=== PATIENT | male | born 1990 | race Two or more races ===

== ENCOUNTER 2025-02-21 18:28 | Inpatient (IN) | payer OTHER ==
[~2025-02-21] VITALS: Ht 190.5 cm; Wt 136.8 kg
--- NOTE | 2025-02-21 18:43 | ED.PDOC ---
History of Present Illness HPI Comments 34-year-old male with no significant past medical history brought in by private car complaining of lower back pain since 10:00 a.m. today. Patient states he was at work lifting a 50 lb steel plate. He states his arms were extended, he was leaning forward, then felt a sharp pain in his lower back as he was extending his back to lift the plate. He states the pain is severe, worse with movement, greater on the left than the right side. He denies any other injuries. He denies any numbness, weakness, bowel or bladder symptoms. Time Seen by MD: 18:35 Reviewed Notes: Nurses Notes, Medications, Allergies Allergies: Coded Allergies: NO KNOWN ALLERGIES (Unverified , 09/03/16) Information Source: Patient Mode of Arrival: Ambulatory Severity: Moderate Timing: Hours Duration: Since onset, Hours Prehospital treatment: None Past Medical History PAST MEDICAL HISTORY: Denies Surgical History: Denies all surgeries Family History Family History: Reviewed,noncontributory to illness, Unknown Social History Smoker: Unknown Alcohol: Denies ETOH Use Drugs: Denies Drug Use Lives In: Home Constitutional: denies: chills, diaphoresis, fatigue, fever, malaise, sweats, weakness, others EENTM: denies: blurred vision, double vision, ear bleeding, ear discharge, ear drainage, ear pain, ear ringing, eye pain, eye redness, hearing loss, mouth pain, mouth swelling, nasal discharge, nose bleeding, nose congestion, nose pain, photophobia, tearing, throat pain, throat swelling, voice changes, others Respiratory: denies: cough, hemoptysis, orthopnea, SOB at rest, shortness of breath, SOB with excertion, stridor, wheezing, others Cardiovascular: denies: chest pain, dizzy spells, diaphoresis, Dyspnea on exertion, edema, irregular heart beat, left arm pain, lightheadedness, palpitations, PND, syncope, others Gastrointestinal: denies: abdomen distended, abdominal pain, blood streaked bowels, constipated, diarrhea, dysphagia, difficulty swallowing, hematemesis, melena, nausea, poor appetite, poor fluid intake, rectal bleeding, rectal pain, vomiting, others Genitourinary: denies: burning, dysuria, flank pain, frequency, hematuria, incontinence, penile discharge, penile sore, pain, testicle pain, testicle swelling, urgency, others Neurological: denies: dizziness, fainting, headache, left sided numbness, left sided weakness, numbness, paresthesia, pre-existing deficit, right sided numbness, right sided weakness, seizure, speech problems, tingling, tremors, weakness, others Musculoskeletal: reports: back pain; denies: gout, joint pain, joint swelling, muscle pain, muscle stiffness, neck pain, others Integumetry: denies: bruises, change in color, change in hair/nails, dryness, laceration, lesions, lumps, rash, wounds, others Allergic/Immunocompromised: denies: Difficulty Healing, Frequent Infections, Hives, Itching, others Hematologic/Lymphatic: denies: anemia, blood clots, easy bleeding, easy bruising, swollen glands, others Endocrine: denies: excessive hunger, excessive sweating, excessive thirst, excessive urination, flushing, intolerance to cold, intolerance to heat, unexplained weight gain, unexplained weight loss, others Psychiatric: denies: anxiety, bipolar disorder, depression, hopeless, panic disorder, schizophrenia, sleepless, suicidal, others All Other Systems: Reviewed and Negative Physical Exam General Appearance: Mild Distress HEENT: Other (Pupils and face symmetric) Neck: Full Range of Motion, Normal Inspection Respiratory: Lungs Clear, No Accessory Muscle Use, No Respiratory Distress, Normal Breath Sounds Cardiovascular: No Edema, No JVD, Regular Rate/Rhythm Breast Exam: Deferred Gastrointestinal: Non Tender, Soft Genitalia: Deferred Pelvic: Deferred Rectal: Deferred Extremities: Normal inspection, Normal range of motion, Non-tender, No pedal edema Musculoskeletal : Extremity Location: Back (Left greater than right lumbar paraspinal soft tissue tenderness/muscle spasm. No midline tenderness.) Apperance: Normal Neurologic: Alert (Oriented x4), Other (Ambulatory) Cerebellar Function: NOT DONE Reflexes: NOT DONE Skin: Dry, Normal Color, Warm Lymphatic: NOT DONE Was a procedure done? Was a procedure done?: No Differential Dx Considerations may include: Lumbar strain/spasm, disc disease, among others X-Ray, Labs, Meds, VS Vital Signs Date Time Temp Pulse Resp B/P (MAP) Pulse Ox O2 Delivery O2 Flow Rate FiO2 02/21/25 19:10 96 17 95 Room Air 02/21/25 19:10 98.7 96 17 138/67 (90) 95 98.7 02/21/25 18:56 99.7 87 8 141/86 (104) 95 99.7 Lab Test 02/21/25 19:10 Range/Units Sodium Level 138 136-145 mmol/L Potassium Level 4.0 3.5-5.1 mmol/L Chloride Level 106 98-107 mmol/L Carbon Dioxide Level 22 20-31 mmol/L Anion Gap 10 5-15 Blood Urea Nitrogen 15 9-23 mg/dL Creatinine 0.88 0.700-1.30 mg/dL Glomerular Filtration Rate Calc 117 >90 mL/min BUN/Creatinine Ratio 17.0 10.0-20.0 Serum Glucose 100 74-106 mg/dL Calcium Level 10.4 8.7-10.4 mg/dL Total Bilirubin 0.8 0.2-1.0 mg/dL Aspartate Amino Transferase (AST) 44 H 13-40 U/L Alanine Aminotransferase (ALT) 81 H 7-40 U/L Alkaline Phosphatase 135 H 46-116 U/L Total Protein 7.9 5.7-8.2 g/dL Albumin 4.9 H 3.2-4.8 g/dL Current Medications Medications (Trade) Dose Ordered Sig/Terry Route Start Time Stop Time Status Last Admin Ketorolac Tromethamine (Toradol Injection) 30 mg ONCE ONCE IV 02/21/25 18:45 02/21/25 18:46 DC 02/21/25 19:41 Methocarbamol (Robaxin) 1,000 mg ONCE ONCE PO 02/21/25 18:45 02/21/25 18:46 DC 02/21/25 19:06 Acetaminophen/ Hydrocodone Bitart ([place] 5/325MG Tab) 2 tab ONCE ONCE PO 02/21/25 18:45 02/21/25 18:46 DC 02/21/25 19:07 Dexamethasone Sodium Phosphate (Decadron Injection) 10 mg ONCE ONCE IV 02/21/25 19:00 02/21/25 19:34 DC 02/21/25 19:40 Famotidine (Pepcid Injection) 20 mg ONCE ONCE IV 02/21/25 19:00 02/21/25 19:34 DC 02/21/25 19:40 PROCEDURE(s): LS2CT - LS SPINE WO CONTRAST REASON: low back pain s/p heavy lifting ORDER NUMBER(s): [id number], ACCESSION NUMBER(s): [id number] EXAM: CT LS SPINE WO CONTRAST INDICATION: low back pain s/p heavy lifting COMPARISON: None TECHNIQUE: Multiple axial CT images of the lumbar spine were obtained using bone algorithm. Axial and coronal reformatting was done. Bone and soft tissue windows were reviewed. Radiation Dose Information: CT Dose: CTDI volume is 38.94 mGy. Dose-length product is 1469.19 mGy*cm FINDINGS: No CT evidence of acute fracture or traumatic mal-alignment. The visualized paraspinal soft tissues are grossly unremarkable. Slightly prominent disc osteophyte complex at L5-S1 causing moderate central canal stenosis without significant neural foraminal narrowing. Small disc osteophyte complex at L4-L5 causing mild central canal stenosis without significant neural foraminal narrowing.. IMPRESSION: 1. No CT evidence of acute fracture or traumatic mal-alignment of the bony lumbar spine. 2. Slightly prominent disc osteophyte complex at L5-S1 causing moderate central canal stenosis without significant neural foraminal narrowing. 3. Small disc osteophyte complex at L4-L5 causing mild central canal stenosis without significant neural foraminal narrowing. 4. Consider lumbar spine MRI for further evaluation. 5. Radiation optimization: All CT scans at this facility use at least one of these dose optimization techniques: automated exposure control mA and/or kV adjustment per patient size (includes targeted exams where dose is matched to clinical indication) or iterative reconstruction. X-Ray, Labs, Meds, VS Comment 34-year-old male with no significant past medical history complaining of severe low back pain status post heavy lifting. Vitals remarkable for temperature 99.7�, BP 141/86 Exam remarkable for left greater than right lumbar paraspinal soft tissue tenderness/spasm. No midline tenderness. Rhythm strip independently interpreted by me: Sinus rhythm, rate 87, no ectopy. CBC pending, metabolic panel remarkable for mildly elevated transaminases, UA pending Patient treated with the following in the ED: Toradol 30 mg IV, [place] 5/325 mg 2 tabs p.o., Robaxin 1 g p.o. , dexamethasone 1 g IV, Pepcid 20 mg IV On re-evaluation, patient states pain has somewhat improved, however is still present. He declined any additional pain medications for now. Vitals are stable. Plan is to admit the patient for going pain control and spine MRI in the [facility]. Time of 1ST Reevaluation: 19:05 Reevaluation 1ST: Unchanged Patient Education/Counseling: Diagnosis, Treatment, Prognosis Family Education/Counseling: No Family Present Departure 1 Departure Time of Disposition: 18:50 Impression: Primary Impression: Lumbar strain Qualified Codes: S39.012A - Strain of muscle, fascia and tendon of lower back, initial encounter Additional Impressions: Lumbar paraspinal muscle spasm Lumbar disc disease Intractable low back pain Disposition: ADMITTED INPATIENT Admit to: Med Surg Condition: Fair Critical Care Note Critical Care Time?: No Stability Stability form required: No Heart Score Heart Score: Heart Score Response (Comments) Value History N/A 0 EKG N/A 0 Age N/A 0 Risk Factors N/A 0 Troponin N/A 0 Total 0 I personally scribed for YAMILET HARTMANN MD ([email or web address]) on 02/21/25 at 18:43. Electronically submitted by Jefferson Peter ([email or web address]). YAMILET HARTMANN MD Feb 21, 2025 18:43
[2025-02-21] MEDS: METHOCARBAMOL 500 MG TAB PO ONE (19:06)
[2025-02-21] MEDS: HYDROcodone-ACET 5/325MG TAB PO ONE (19:07)
[2025-02-21] MEDS: KETOROLAC TROMETH 30 MG/ML 1ML VIAL IV ONE (19:07)
[2025-02-21] MEDS: FAMOTIDINE (10MG/ML) 2ML VL IV ONE (19:40)
[2025-02-21] MEDS: DexAMETHasone SOD PHOS 10MG/1ML VIAL INJ IV ONE (19:40)
[2025-02-21 19:48] LABS: Anion Gap 10 (5-15); Blood Urea Nitrogen 15 mg/dL (9-23); Carbon Dioxide 22 mmol/L (20-31); Chloride 106 mmol/L (98-107); Glucose 100 mg/dL (74-106); Sodium 138 mmol/L (136-145); Total Protein 7.9 g/dL (5.7-8.2)
[2025-02-21 19:49] LABS: Bilirubin, Total 0.8 mg/dL (0.2-1.0)
[2025-02-21 19:50] LABS: Alanine Aminotransferase 81 U/L (7-40); Albumin 4.9 g/dL (3.2-4.8); Alkaline Phosphatase 135 U/L (46-116); Aspartate Aminotransferase 44 U/L (13-40); Calcium 10.4 mg/dL (8.7-10.4)
--- NOTE | 2025-02-21 20:42 | DVH ---
EXAM: CT LS SPINE WO CONTRAST INDICATION: low back pain s/p heavy lifting COMPARISON: None TECHNIQUE: Multiple axial CT images of the lumbar spine were obtained using bone algorithm. Axial an d coronal reformatting was done. Bone and soft tissue windows were reviewed. Radiation Dose Information: CT Dose: CTDI volume is 38.94 mGy. Dose-length product is 1469.19 mGy*cm FINDINGS: No CT evidence of acute fracture or traumatic mal-alignment. The visualized paraspinal soft tissues a re grossly unremarkable. Slightly prominent disc osteophyte complex at L5-S1 causing moderate central canal stenosis without s ignificant neural foraminal narrowing. Small disc osteophyte complex at L4-L5 causing mild central canal stenosis without significant neural foraminal narrowing.. IMPRESSION: 1. No CT evidence of acute fracture or traumatic mal-alignment of the bony lumbar spine. 2. Slightly prominent disc osteophyte complex at L5-S1 causing moderate central canal stenosis withou t significant neural foraminal narrowing. 3. Small disc osteophyte complex at L4-L5 causing mild central canal stenosis without significant ailyn ral foraminal narrowing. 4. Consider lumbar spine MRI for further evaluation. 5. Radiation optimization: All CT scans at this facility use at least one of these dose optimization techniques: automated exposure control mA and/or kV adjustment per patient size (includes targeted e xams where dose is matched to clinical indication) or iterative reconstruction.
[2025-02-21 21:12] LABS: Basophils # (auto) 0 10 ^3/uL (0-0.2); Basophils % (auto) 0.5 % (0.0-2.0); Eosinophils # (auto) 0.2 10 ^3/uL (0-0.8); Eosinophils % (auto) 2.9 % (0.0-7.0); Hematocrit 47.3 % (41.0-53.0); Hemoglobin 16.6 g/dL (13.5-17.5); Lymphocytes # (auto) 1.9 10 ^3/uL (0.4-5.4); Lymphocytes % (auto) 24.5 % (10.0-50.0); Mean Corpuscular Hemoglobin 30.9 pg (28.0-32.0); Mean Corpuscular Volume 88.1 fL (80.0-100.0); Monocytes # (auto) 0.6 10 ^3/uL (0-1.3); Monocytes % (auto) 8.6 % (0.0-12.0); Neutrophils # (auto) 4.8 10 ^3/uL (1.6-8.6); Neutrophils % (auto) 63.5 % (37.0-80.0); Nucleated Red Blood Cells % 0.3 %; Platelet Count (auto) 245 10^3/uL (140-450); Red Blood Cells 5.37 10^6/uL (4.5-5.90); Red Cell Distribution Width 13.7 % (11.8-14.3); White Blood Cell 7.6 10^3/uL (4.4-10.8)
[2025-02-21 21:24] LABS: Urine Bacteria None Seen /hpf (None Seen)
[2025-02-21 21:32] LABS: Urine Blood Negative /uL (Negative); Urine Clarity Clear (Clear); Urine Color Yellow (Yellow); Urine Mucus FEW (None Seen); Urine Protein, UAD Negative (Negative); Urine Specific Gravity 1.033 (1.001-1.035); Urine Squamous Epithelial Cell FEW /hpf (<5); Urine Urobilinogen Normal (Negative); Urine WBC 1 /HPF (0-3)
[2025-02-21 23:07] VITALS: PULSE 79; RESP 16; O2SAT 94
[2025-02-21] MEDS ORDERED: MORPHINE SULFATE INJ 2 MG/ml SYRG IV PRN (23:15)
[2025-02-21] MEDS ORDERED: TEMAZEPAM 15 MG CAP PO PRN (23:15)
[2025-02-21] MEDS ORDERED: ONDANSETRON HCL 4 MG/2 ML VIAL IV PRN (23:15)
[2025-02-21] MEDS ORDERED: ACETAMINOPHEN 325 MG TAB PO PRN (23:15)
[2025-02-22] VITALS (9 sets, daily range): BP systolic 106–128; BP diastolic 49–83; PULSE 76–96; RESP 16–18; TEMP 97.2–98.3; O2SAT 92–96
--- NOTE | 2025-02-22 04:32 | DVHHP2 ---
History of Present Illness Reason for Visit: Back pain History of Present Illness 34-year-old male presents for evaluation of back pain. Patient reports developing lower back pain after lifting a 50 lb still plate. He states the pain is worst with movement. Denies numbness or weakness to lower extremities. No other acute complaints. Past Medical History Denies Past Surgical History Denies Family History Noncontributory Smoke: No ALCOHOL: none Lives: with Family Review of Systems Review of Systems Review of systems are currently negative otherwise addressed in HPI. Allergies: Coded Allergies: NO KNOWN ALLERGIES (Unverified , 09/03/16) Medications Current Medications Medications Dose Ordered Sig/Terry Route Start Time Stop Time Status Last Admin Dose Admin Acetaminophen/ Hydrocodone Bitart 1 tab Q4HP PRN PO 02/21/25 23:15 Temazepam 15 mg QHSP PRN PO 02/21/25 23:15 Ondansetron HCl 4 mg Q4HP PRN IV 02/21/25 23:15 Acetaminophen 650 mg Q6HP PRN PO 02/21/25 23:15 Morphine Sulfate 2 mg Q4HPRN PRN IV 02/21/25 23:15 Exam Vital Signs Vital Signs Date Time Temp Pulse Resp B/P (MAP) Pulse Ox O2 Delivery O2 Flow Rate FiO2 02/22/25 00:53 98.0 76 18 128/83 (98) 94 98.0 02/22/25 00:53 Room Air* 0 21 Exam Gen: 34-year-old male in no apparent distress Skin: Warm, dry, normal color and texture, no rash. HEENT: Normocephalic atraumatic, mucous membranes moist and pink. Neck: Cervical and supraclavicular nodes normal without enlargement, trachea is midline, thyroid gland is normal without masses. Pulmonary: Clear to auscultation and percussion bilaterally. Cardiac: Regular rate and rhythm. No murmur Abdomen: Soft, nontender, nondistended, bowel sounds present all 4 quadrants, no guarding, no rigidity, no organomegaly. Extremities: No cyanosis, clubbing, no edema Neuro: Cranial nerves II through XII grossly intact, normal affect and speech, no focal motor deficits. Labs/Xrays ORDERING PHYSICIAN: YAMILET HARTMANN MD PROCEDURE(s): LS2CT - LS SPINE WO CONTRAST REASON: low back pain s/p heavy lifting ORDER NUMBER(s): [id number], ACCESSION NUMBER(s): [id number] EXAM: CT LS SPINE WO CONTRAST INDICATION: low back pain s/p heavy lifting COMPARISON: None TECHNIQUE: Multiple axial CT images of the lumbar spine were obtained using bone algorithm. Axial and coronal reformatting was done. Bone and soft tissue windows were reviewed. Radiation Dose Information: CT Dose: CTDI volume is 38.94 mGy. Dose-length product is 1469.19 mGy*cm FINDINGS: No CT evidence of acute fracture or traumatic mal-alignment. The visualized paraspinal soft tissues are grossly unremarkable. Slightly prominent disc osteophyte complex at L5-S1 causing moderate central canal stenosis without significant neural foraminal narrowing. Small disc osteophyte complex at L4-L5 causing mild central canal stenosis without significant neural foraminal narrowing.. IMPRESSION: 1. No CT evidence of acute fracture or traumatic mal-alignment of the bony lumbar spine. 2. Slightly prominent disc osteophyte complex at L5-S1 causing moderate central canal stenosis without significant neural foraminal narrowing. 3. Small disc osteophyte complex at L4-L5 causing mild central canal stenosis without significant neural foraminal narrowing. 4. Consider lumbar spine MRI for further evaluation. 5. Radiation optimization: All CT scans at this facility use at least one of these dose optimization techniques: automated exposure control mA and/or kV adjustment per patient size (includes targeted exams where dose is matched to clinical indication) or iterative reconstruction. Labs Test 02/21/25 19:18 02/21/25 19:10 Range/Units Urine Color Yellow Yellow Urine Clarity Clear Clear Urine pH 6.0 5.0-9.0 Urine Specific [place] 1.033 1.001-1.035 Urine Protein Negative Negative Urine Ketones Negative Negative Urine Blood Negative Negative /uL Urine Nitrite Negative Negative Urine Bilirubin Negative Negative Urine Urobilinogen Normal Negative mg/dL Urine Leukocyte Esterase Negative Negative /uL Urine RBC 1 0 - 3 /hpf Urine Microscopic WBC 1 0-3 /HPF Urine Squamous Epithelial Cells Few <5 /hpf Urine Bacteria None seen None Seen /hpf Urine Mucus Few None Seen Urine Glucose Normal Normal mg/dL White Blood Count 7.6 4.4-10.8 10^3/uL Red Blood Count 5.37 4.5-5.90 10^6/uL Hemoglobin 16.6 13.5-17.5 g/dL Hematocrit 47.3 41.0-53.0 % Mean Corpuscular Volume 88.1 80.0-100.0 fL Mean Corpuscular Hemoglobin 30.9 28.0-32.0 pg Mean Corpuscular Hemoglobin Concent 35.0 32.0-36.0 g/dL Red Cell Distribution Width 13.7 11.8-14.3 % Platelet Count 245 140-450 10^3/uL Mean Platelet Volume 8.5 6.9-10.8 fL Neutrophils (%) (Auto) 63.5 37.0-80.0 % Lymphocytes (%) (Auto) 24.5 10.0-50.0 % Monocytes (%) (Auto) 8.6 0.0-12.0 % Eosinophils (%) (Auto) 2.9 0.0-7.0 % Basophils (%) (Auto) 0.5 0.0-2.0 % Neutrophils # (Auto) 4.8 1.6-8.6 10 ^3/uL Lymphocytes # (Auto) 1.9 0.4-5.4 10 ^3/uL Monocytes # (Auto) 0.6 0-1.3 10 ^3/uL Eosinophils # (Auto) 0.2 0-0.8 10 ^3/uL Basophils # (Auto) 0 0-0.2 10 ^3/uL Nucleated Red Blood Cells 0.3 % Sodium Level 138 136-145 mmol/L Potassium Level 4.0 3.5-5.1 mmol/L Chloride Level 106 98-107 mmol/L Carbon Dioxide Level 22 20-31 mmol/L Anion Gap 10 5-15 Blood Urea Nitrogen 15 9-23 mg/dL Creatinine 0.88 0.700-1.30 mg/dL Glomerular Filtration Rate Calc 117 >90 mL/min BUN/Creatinine Ratio 17.0 10.0-20.0 Serum Glucose 100 74-106 mg/dL Calcium Level 10.4 8.7-10.4 mg/dL Total Bilirubin 0.8 0.2-1.0 mg/dL Aspartate Amino Transferase (AST) 44 H 13-40 U/L Alanine Aminotransferase (ALT) 81 H 7-40 U/L Alkaline Phosphatase 135 H 46-116 U/L Total Protein 7.9 5.7-8.2 g/dL Albumin 4.9 H 3.2-4.8 g/dL Assessment/Plan Assessment/Plan Assessment Lumbar strain Plan Admit the patient to [facility] to the hospitalist Pain management MRI of the lumbar spine pending Continue treatment per orders. Plan discussed with: Patient My Orders Orders - DELVIN VELÁSQUEZ Procedure Category Date Status Time Lumbar Spine Wo MRI 02/21/25 Logged Contrast 23:13 Regular Diet DIET 02/22/25 Transmitted Breakfast Admit ADMIT 02/21/25 Transmitted 23:13 Hydrocodone-Acet PHA 02/21/25 In Process 5/325mg Tab ([place] 23:15 Temazepam (Restoril) PHA 02/21/25 In Process 23:15 Ondansetron Hcl PHA 02/21/25 In Process (Zofran) 23:15 Condition: Stable OVIDIO 02/21/25 In Process 23:13 Acetaminophen Tablet PHA 02/21/25 In Process (Tylenol Tablet) 23:15 Bedrest With Bathroom OVIDIO 02/21/25 In Process Privileg 23:13 Morphine Sulfate PHA 02/21/25 In Process Injection 23:15 Date of Service: Feb 21, 2025 Billing Provider: DELVIN VELÁSQUEZ Common Visit Codes: [id number] INP/OBS CARE (MOD) DELVIN VELÁSQUEZ Feb 22, 2025 04:32
[2025-02-22] MEDS: HYDROcodone-ACET 5/325MG TAB PO PRN (08:02)
--- NOTE | 2025-02-22 09:53 | DVHPN2 ---
Reviewed: Care Plan, H&P, Labs, Medications, Previous Orders, Radiology Changes from previous H/P or p: No Changes Objective Vitals Vital Signs Date Time Temp Pulse Resp B/P (MAP) Pulse Ox O2 Delivery O2 Flow Rate FiO2 02/22/25 09:00 98.3 79 17 113/65 (81) 92 98.3 02/22/25 08:00 Room Air* 0 21 Intake/Output Intake and Output 02/22/25 07:00 Intake Total 0 ml Balance 0 ml Intake Oral 0 ml Medications Current Medications Medications Dose Ordered Sig/Terry Route Start Time Stop Time Status Last Admin Dose Admin Acetaminophen/ Hydrocodone Bitart 1 tab Q4HP PRN PO 02/21/25 23:15 02/22/25 08:02 1 TAB Temazepam 15 mg QHSP PRN PO 02/21/25 23:15 Ondansetron HCl 4 mg Q4HP PRN IV 02/21/25 23:15 Acetaminophen 650 mg Q6HP PRN PO 02/21/25 23:15 Morphine Sulfate 2 mg Q4HPRN PRN IV 02/21/25 23:15 Laboratory Results Laboratory Tests 02/21/25 19:10 Chemistry Test 02/21/25 19:10 Albumin 4.9 g/dL (3.2-4.8) H Calcium Level 10.4 mg/dL (8.7-10.4) Total Protein 7.9 g/dL (5.7-8.2) LFT Test 02/21/25 19:10 Alanine Aminotransferase (ALT) 81 U/L (7-40) H Alkaline Phosphatase 135 U/L (46-116) H Aspartate Amino Transferase (AST) 44 U/L (13-40) H Total Bilirubin 0.8 mg/dL (0.2-1.0) Urinalysis Test 02/21/25 19:18 Urine Color Yellow (Yellow) Urine Clarity Clear (Clear) Urine pH 6.0 (5.0-9.0) Urine Specific [place] 1.033 (1.001-1.035) Urine Protein Negative (Negative) Urine Ketones Negative (Negative) Urine Blood Negative /uL (Negative) Urine Nitrite Negative (Negative) Urine Bilirubin Negative (Negative) Urine Urobilinogen Normal mg/dL (Negative) Urine Leukocyte Esterase Negative /uL (Negative) Urine RBC 1 /hpf (0 - 3) Urine Microscopic WBC 1 /HPF (0-3) Urine Squamous Epithelial Cells Few /hpf (<5) Urine Bacteria None seen /hpf (None Seen) Urine Mucus Few (None Seen) Urine Glucose Normal mg/dL (Normal) Labs and/or images reviewed: Labs reviewed by me, Image(s) reviewed by me Assessment/Plan Assessment/Plan This Is worker's comp case Acute low back pain while lifting 50 lb weight at work Lumbar strain: Toradol [place] Robaxin, CT LS spine negative for any fracture, MRI LS spine pending, consult for spine surgeon Dr. Ward Plan discussed with: Patient My Orders Orders - NGUYEN HERNANDEZ MD Procedure Category Date Status Time * Orthopedic Consult CONS 02/22/25 Transmitted 09:42 Date of Service: Feb 22, 2025 Billing Provider: NGUYEN HERNANDEZ MD Common Visit Codes: [id number] INP/OBS CARE(HIGH) NGUYEN HERNANDEZ MD Feb 22, 2025 09:53
--- NOTE | 2025-02-22 10:02 | DVH ---
CLINICAL INFORMATION: 34 years old, Male; back pain. TECHNIQUE: Multisequence multiplanar MRI images of the lumbar spine were obtained without contrast. COMPARISON: CT dated 02/21/2025. INTERPRETATION: Straightening of the normal lumbar lordosis. Minimal retrolisthesis of L5 on S1. Ve rtebral body heights are maintained. Posterior elements are intact. No focal suspicious marrow sig nal abnormality. Visualized spinal cord and cauda equina are within normal limits. The conus medull samanta is appropriate in signal at the L1 level. Paraspinal soft tissues are unremarkable. L1-L2: No significant disc bulge. Mild congenital spinal canal stenosis. No significant neural fora marielena stenosis. L2-L3: Minimal disc bulge mildly flattening the ventral aspect of the thecal sac. Predominantly ksenia enital [id number] spinal canal stenosis. No significant neural foraminal stenosis. L3-L4: Mild disc bulge superimposed on congenital spinal canal narrowing, causing moderate spinal ca nal stenosis. No significant neural foraminal stenosis. L4-L5: Disc desiccation with diffuse disc bulge superimposed on congenital spinal canal narrowing ca using moderate spinal canal stenosis and partial effacement of the lateral recesses. Small annular fi ssure. Facet hypertrophy with moderate bilateral neural foraminal stenoses, left greater than right. L5-S1: Disc desiccation with moderate disc space narrowing and diffuse disc bulge superimposed on co ngenital spinal canal narrowing causing mild spinal canal stenosis and partial effacement of the late ral recesses. Small annular fissure. Facet hypertrophy and dorsal spurring contributes to moderate bi lateral neural foraminal stenoses. IMPRESSION: 1. Degenerative disc disease and facet disease with associated spinal canal, subarticular, and neural foraminal stenoses as detailed above. 2. Straightening of the normal lumbar lordosis with minimal retrolisthesis of L5 on S1. 3. Annular fissures at L4-L5 and L5-S1. 4. 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
[2025-02-22] MEDS: KETOROLAC TROMETH 30 MG/ML 1ML VIAL IV PRN (10:51)
[2025-02-22] MEDS: METHOCARBAMOL 500 MG TAB PO SCH (12:09)
[2025-02-23 01:00] VITALS: BP 125/66; PULSE 85; RESP 18; TEMP 98.1; O2SAT 99
[2025-02-23 05:00] VITALS: BP 106/73; PULSE 52; RESP 16; TEMP 97.9; O2SAT 98
[2025-02-23 08:00] VITALS: PULSE 80
[2025-02-23 09:00] VITALS: BP 130/74; PULSE 76; RESP 16; TEMP 97.6; O2SAT 96
[2025-02-23] MEDS ORDERED: METH-1182 PO (09:51)
[2025-02-23] MEDS ORDERED: TRAM-626 PO (09:51)
--- NOTE | 2025-02-23 09:56 | DVHPN2 ---
Reviewed: Care Plan, H&P, Labs, Medications, Previous Orders, Radiology Changes from previous H/P or p: No Changes Objective Vitals Vital Signs Date Time Temp Pulse Resp B/P (MAP) Pulse Ox O2 Delivery O2 Flow Rate FiO2 02/23/25 08:00 80 Room Air* 0 21 02/23/25 05:00 97.9 16 106/73 (84) 98 97.9 Intake/Output Intake and Output 02/23/25 07:00 Intake Total 2620 ml Balance 2620 ml Intake Oral 2620 ml # Voids 6 # Bowel Movements 1 Medications Current Medications Medications Dose Ordered Sig/Terry Route Start Time Stop Time Status Last Admin Dose Admin Acetaminophen/ Hydrocodone Bitart 1 tab Q4HP PRN PO 02/21/25 23:15 Hold 02/22/25 08:02 1 TAB Temazepam 15 mg QHSP PRN PO 02/21/25 23:15 Ondansetron HCl 4 mg Q4HP PRN IV 02/21/25 23:15 Acetaminophen 650 mg Q6HP PRN PO 02/21/25 23:15 Morphine Sulfate 2 mg Q4HPRN PRN IV 02/21/25 23:15 Ketorolac Tromethamine 30 mg Q6HPRN PRN IV 02/22/25 10:00 02/27/25 09:59 02/23/25 05:39 30 MG Methocarbamol 750 mg QID PO 02/22/25 12:00 02/23/25 05:38 750 MG Laboratory Results Laboratory Tests 02/21/25 19:10 Urinalysis Test 02/21/25 19:18 Urine Color Yellow (Yellow) Urine Clarity Clear (Clear) Urine pH 6.0 (5.0-9.0) Urine Specific [place] 1.033 (1.001-1.035) Urine Protein Negative (Negative) Urine Ketones Negative (Negative) Urine Blood Negative /uL (Negative) Urine Nitrite Negative (Negative) Urine Bilirubin Negative (Negative) Urine Urobilinogen Normal mg/dL (Negative) Urine Leukocyte Esterase Negative /uL (Negative) Urine RBC 1 /hpf (0 - 3) Urine Microscopic WBC 1 /HPF (0-3) Urine Squamous Epithelial Cells Few /hpf (<5) Urine Bacteria None seen /hpf (None Seen) Urine Mucus Few (None Seen) Urine Glucose Normal mg/dL (Normal) Labs and/or images reviewed: Labs reviewed by me, Image(s) reviewed by me Assessment/Plan Assessment/Plan This Is worker's comp case Acute low back pain while lifting 50 lb weight at work Lumbar strain: Toradol [place] Robaxin, CT LS spine negative for any fracture, consult for spine surgeon Dr. Ed piedra, Vivek Goldberg requesting patient to be discharged home after orthopedic consult MRI LS spine showed: 1. Degenerative disc disease and facet disease with associated spinal canal, subarticular, and neural foraminal stenoses as detailed above. 2. Straightening of the normal lumbar lordosis with minimal retrolisthesis of L5 on S1. 3. Annular fissures at L4-L5 and L5-S1. 4. 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
--- NOTE | 2025-02-23 09:58 | DVHINCON2 ---
Consultation - Spinal Surgery Date Seen: Feb 23, 2025 Referring Physician Referring Physician Attending Doctor: Nguyen Hernandez MD Reason for Consultation Reason for Visit: Back pain History of Present Illness History of Present Illness History of Present Illness 34-year-old male presents for evaluation of back pain. Patient reports developing lower back pain after lifting a 50 lb still plate. He states the pain is worst with movement. Denies numbness or weakness to lower extremities. No other acute complaints. Past Medical/Surgical History Past Medical/Surgical History Past Medical History Denies Past Surgical History Denies Family and Social History Family and Social History Family History Noncontributory Smoke: No ALCOHOL: none Lives: with Family Allergies and medications Allergies: Coded Allergies: NO KNOWN ALLERGIES (Unverified , 09/03/16) Home Meds Active Scripts Methocarbamol (Methocarbamol) 750 Mg Tab, 750 MG PO TID, #30 TAB Prov:NGUYEN HERNANDEZ MD 02/23/25 Tramadol HCl (Tramadol HCl) 50 Mg Tab, 50 MG PO QID, #60 TAB Prov:NGUYEN HERNANDEZ MD 02/23/25 Review of systems Review of Systems: HEENT:Normal, CVS:Normal, RESPIRATORY:Normal, MSK:Normal, NEURO:Abnormal (patient is having burning pains to his heel intermitently) Examination Vital signs Imaging: ORDERING PHYSICIAN: DELVIN VELÁSQUEZ PROCEDURE(s): MSL - LUMBAR SPINE WO CONTRAST REASON: back pain ORDER NUMBER(s): [id number], ACCESSION NUMBER(s): [id number] CLINICAL INFORMATION: 34 years old, Male; back pain. TECHNIQUE: Multisequence multiplanar MRI images of the lumbar spine were obtained without contrast. COMPARISON: CT dated 02/21/2025. INTERPRETATION: Straightening of the normal lumbar lordosis. Minimal retrolisthesis of L5 on S1. Vertebral body heights are maintained. Posterior elements are intact. No focal suspicious marrow signal abnormality. Visualized spinal cord and cauda equina are within normal limits. The conus medullaris is appropriate in signal at the L1 level. Paraspinal soft tissues are unremarkable. L1-L2: No significant disc bulge. Mild congenital spinal canal stenosis. No significant neural foraminal stenosis. L2-L3: Minimal disc bulge mildly flattening the ventral aspect of the thecal sac. Predominantly congenital [id number] spinal canal stenosis. No significant neural foraminal stenosis. L3-L4: Mild disc bulge superimposed on congenital spinal canal narrowing, causing moderate spinal canal stenosis. No significant neural foraminal stenosis. L4-L5: Disc desiccation with diffuse disc bulge superimposed on congenital spinal canal narrowing causing moderate spinal canal stenosis and partial effacement of the lateral recesses. Small annular fissure. Facet hypertrophy with moderate bilateral neural foraminal stenoses, left greater than right. L5-S1: Disc desiccation with moderate disc space narrowing and diffuse disc bulge superimposed on congenital spinal canal narrowing causing mild spinal canal stenosis and partial effacement of the lateral recesses. Small annular fissure. Facet hypertrophy and dorsal spurring contributes to moderate bilateral neural foraminal stenoses. IMPRESSION: 1. Degenerative disc disease and facet disease with associated spinal canal, subarticular, and neural foraminal stenoses as detailed above. 2. Straightening of the normal lumbar lordosis with minimal retrolisthesis of L5 on S1. 3. Annular fissures at L4-L5 and L5-S1. 4. 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 Vital Signs Date Time Temp Pulse Resp B/P (MAP) Pulse Ox O2 Delivery O2 Flow Rate FiO2 02/23/25 08:00 80 Room Air* 0 21 02/23/25 05:00 97.9 16 106/73 (84) 98 97.9 Medications Current Medications Medications (Trade) Dose Ordered Sig/Terry Route PRN Reason Start Time Stop Time Status Last Admin Ketorolac Tromethamine (Toradol Injection) 30 mg Q6HPRN PRN IV MODERATE PAIN (4-6 PAIN SCALE) 02/22/25 10:00 02/27/25 09:59 02/23/25 05:39 Methocarbamol (Robaxin) 750 mg QID PO 02/22/25 12:00 02/23/25 05:38 Laboratory Labs Test 02/21/25 19:18 02/21/25 19:10 Range/Units Urine Color Yellow Yellow Urine Clarity Clear Clear Urine pH 6.0 5.0-9.0 Urine Specific [place] 1.033 1.001-1.035 Urine Protein Negative Negative Urine Ketones Negative Negative Urine Blood Negative Negative /uL Urine Nitrite Negative Negative Urine Bilirubin Negative Negative Urine Urobilinogen Normal Negative mg/dL Urine Leukocyte Esterase Negative Negative /uL Urine RBC 1 0 - 3 /hpf Urine Microscopic WBC 1 0-3 /HPF Urine Squamous Epithelial Cells Few <5 /hpf Urine Bacteria None seen None Seen /hpf Urine Mucus Few None Seen Urine Glucose Normal Normal mg/dL White Blood Count 7.6 4.4-10.8 10^3/uL Red Blood Count 5.37 4.5-5.90 10^6/uL Hemoglobin 16.6 13.5-17.5 g/dL Hematocrit 47.3 41.0-53.0 % Mean Corpuscular Volume 88.1 80.0-100.0 fL Mean Corpuscular Hemoglobin 30.9 28.0-32.0 pg Mean Corpuscular Hemoglobin Concent 35.0 32.0-36.0 g/dL Red Cell Distribution Width 13.7 11.8-14.3 % Platelet Count 245 140-450 10^3/uL Mean Platelet Volume 8.5 6.9-10.8 fL Neutrophils (%) (Auto) 63.5 37.0-80.0 % Lymphocytes (%) (Auto) 24.5 10.0-50.0 % Monocytes (%) (Auto) 8.6 0.0-12.0 % Eosinophils (%) (Auto) 2.9 0.0-7.0 % Basophils (%) (Auto) 0.5 0.0-2.0 % Neutrophils # (Auto) 4.8 1.6-8.6 10 ^3/uL Lymphocytes # (Auto) 1.9 0.4-5.4 10 ^3/uL Monocytes # (Auto) 0.6 0-1.3 10 ^3/uL Eosinophils # (Auto) 0.2 0-0.8 10 ^3/uL Basophils # (Auto) 0 0-0.2 10 ^3/uL Nucleated Red Blood Cells 0.3 % Sodium Level 138 136-145 mmol/L Potassium Level 4.0 3.5-5.1 mmol/L Chloride Level 106 98-107 mmol/L Carbon Dioxide Level 22 20-31 mmol/L Anion Gap 10 5-15 Blood Urea Nitrogen 15 9-23 mg/dL Creatinine 0.88 0.700-1.30 mg/dL Glomerular Filtration Rate Calc 117 >90 mL/min BUN/Creatinine Ratio 17.0 10.0-20.0 Serum Glucose 100 74-106 mg/dL Calcium Level 10.4 8.7-10.4 mg/dL Total Bilirubin 0.8 0.2-1.0 mg/dL Aspartate Amino Transferase (AST) 44 H 13-40 U/L Alanine Aminotransferase (ALT) 81 H 7-40 U/L Alkaline Phosphatase 135 H 46-116 U/L Total Protein 7.9 5.7-8.2 g/dL Albumin 4.9 H 3.2-4.8 g/dL Examination: GENERAL:Normal, HEENT:Normal, NECK:Normal, LUNGS:Normal, CVS:Normal, ABDOMEN:Normal, MSK:Abnormal (muscle spasms are present), SKIN:Normal, NEURO:Abnormal (patient is having burning pains to his heel intermitently), :Normal Problem List/Assessment/Plan Problems: (1) Lumbar disc disease (2) Intractable low back pain (3) Lumbar paraspinal muscle spasm (4) Lumbar strain Assessment and Plan 1. Degenerative disc disease and facet disease with associated spinal canal, subarticular, and neural foraminal stenoses as detailed above. 2. Straightening of the normal lumbar lordosis with minimal retrolisthesis of L5 on S1. 3. Annular fissures at L4-L5 and L5-S1. 4. 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 5. The patient should have a trial of physical therapy for strengthening, posture, flexibility and education regarding body mechanics when reaching, puling and lifting. We wound expect at least 6 weeks of PT and rest at this time. 6. Patient may be experiencing severe muscle spasms as indicated by the straightening of the lumbar curve, and tense state of back muscles currently. ordered flexaril 10 mg TID 7. Patient will need follow up with PCP for further care, there is high probability that this patient will require surgery to resolve the neural foraminal stenoses, and improve the L4-5, L5-S1 disc failure in the near future if conservative management does not resolve the pain. Call with questions [facility] Orthopaedic Spine Surgery nurse practitioner For Dr Sherry Ward Patient was examined, chart reviewed, labs evaluated, and diagnostic studies and findings analyzed. Case was discussed with Dr. Juan Ward who formulated the plan of care. This medical document was created using an electronic medical record system with [employer] dictation system. Although this document has been carefully reviewed, there might still be some phonetic and typographical errors. These areas are purely typographical due to imperfections of the software programs, and do not reflect any compromise in the patient's medical care. Plan discussed with Plan discussed with: Patient, Other () HERB HAMMER NP Feb 23, 2025 09:58
--- NOTE | 2025-02-23 10:02 | DVHDS2 ---
Discharge Summary Date of Admission Feb 21, 2025 at 23:13 Date of Discharge: Feb 23, 2025 Admitting Diagnosis Severe low back pain Wounds: None Labs/Diagnostic Data: Laboratory Results Test 02/21/25 19:18 02/21/25 19:10 Urine Color Yellow (Yellow) Urine Clarity Clear (Clear) Urine pH 6.0 (5.0-9.0) Urine Specific [place] 1.033 (1.001-1.035) Urine Protein Negative (Negative) Urine Ketones Negative (Negative) Urine Blood Negative /uL (Negative) Urine Nitrite Negative (Negative) Urine Bilirubin Negative (Negative) Urine Urobilinogen Normal mg/dL (Negative) Urine Leukocyte Esterase Negative /uL (Negative) Urine RBC 1 /hpf (0 - 3) Urine Microscopic WBC 1 /HPF (0-3) Urine Squamous Epithelial Cells Few /hpf (<5) Urine Bacteria None seen /hpf (None Seen) Urine Mucus Few (None Seen) Urine Glucose Normal mg/dL (Normal) White Blood Count 7.6 10^3/uL (4.4-10.8) Red Blood Count 5.37 10^6/uL (4.5-5.90) Hemoglobin 16.6 g/dL (13.5-17.5) Hematocrit 47.3 % (41.0-53.0) Mean Corpuscular Volume 88.1 fL (80.0-100.0) Mean Corpuscular Hemoglobin 30.9 pg (28.0-32.0) Mean Corpuscular Hemoglobin Concent 35.0 g/dL (32.0-36.0) Red Cell Distribution Width 13.7 % (11.8-14.3) Platelet Count 245 10^3/uL (140-450) Mean Platelet Volume 8.5 fL (6.9-10.8) Neutrophils (%) (Auto) 63.5 % (37.0-80.0) Lymphocytes (%) (Auto) 24.5 % (10.0-50.0) Monocytes (%) (Auto) 8.6 % (0.0-12.0) Eosinophils (%) (Auto) 2.9 % (0.0-7.0) Basophils (%) (Auto) 0.5 % (0.0-2.0) Neutrophils # (Auto) 4.8 10 ^3/uL (1.6-8.6) Lymphocytes # (Auto) 1.9 10 ^3/uL (0.4-5.4) Monocytes # (Auto) 0.6 10 ^3/uL (0-1.3) Eosinophils # (Auto) 0.2 10 ^3/uL (0-0.8) Basophils # (Auto) 0 10 ^3/uL (0-0.2) Nucleated Red Blood Cells 0.3 % Sodium Level 138 mmol/L (136-145) Potassium Level 4.0 mmol/L (3.5-5.1) Chloride Level 106 mmol/L (98-107) Carbon Dioxide Level 22 mmol/L (20-31) Anion Gap 10 (5-15) Blood Urea Nitrogen 15 mg/dL (9-23) Creatinine 0.88 mg/dL (0.700-1.30) Glomerular Filtration Rate Calc 117 mL/min (>90) BUN/Creatinine Ratio 17.0 (10.0-20.0) Serum Glucose 100 mg/dL (74-106) Calcium Level 10.4 mg/dL (8.7-10.4) Total Bilirubin 0.8 mg/dL (0.2-1.0) Aspartate Amino Transferase (AST) 44 U/L (13-40) Alanine Aminotransferase (ALT) 81 U/L (7-40) Alkaline Phosphatase 135 U/L (46-116) Total Protein 7.9 g/dL (5.7-8.2) Albumin 4.9 g/dL (3.2-4.8) Other Laboratory Tests 02/21/25 19:10 Brief Hx & Hospital Course: 34-year-old male came in his worker's comp case. Per patient he was lifting a 54 and heavy weight at work and noticed back pain and went to his worker's comp Dr came to ER because pain is increasing. Treated with the Toradol [place] and Robaxin. CT LS spine negative for fracture MRI of the LS spine showed degenerative disc disease and facet disease with the associated spinal canal subarticular and neural foramina stenosis and congenital spinal canal narrowing contributing to spinal canal stenosis. Patient had much relief with the [place] Robaxin and tramadol able to ambulate. Spine surgery consult for Dr. Wallis pending. Patient is requesting to be discharged today after orthopedic consult. Prescriptions transmitted to the pharmacy. Off work for seven days. He will follow up with worker's digna Wadsworth. Consults/Reason for consult Orthopedic Dr. Ward Operations or Procedures CT LS spine MRI LS spine Condition at Discharge: Fair Final Diagnosis/Problems List This Is worker's comp case Acute low back pain while lifting 50 lb weight at work Lumbar strain: Toradol [place] Robaxin, CT LS spine negative for any fracture, consult for spine surgeon Vivek Carter requesting patient to be discharged home after orthopedic consult MRI LS spine showed: 1. Degenerative disc disease and facet disease with associated spinal canal, subarticular, and neural foraminal stenoses as detailed above. 2. Straightening of the normal lumbar lordosis with minimal retrolisthesis of L5 on S1. 3. Annular fissures at L4-L5 and L5-S1. 4. There is a degree of congenital spinal canal narrowing contributing to the spinal canal stenose Discharge Disposition: Home Discharge Instruct/Medications Diet: Regular Activity: Light activity Follow Up/Referral: Follow up with your worker's digna Wadsworth in 2-3 days Medications: Robaxin Tramadol Transmitted to pharmacy Discharge Statement: "Patient was advised to return to the ER or call 911 if any headaches, dizziness, shortness of breath, chest pain, abdominal pain, bleeding, fevers, or worsening of medical condition. Patient was counseled about treatment plan, medications, possible side effects, patient�verbalized understanding. All questions were answered to the best of my ability. This discharge took greater then 30 minutes in planning, reviewing documentation, counseling the patient, and discussing with other team members." ASSESSMENT ASSESSMENT Hospital Course Uneventful Assessment This Is worker's comp case Acute low back pain while lifting 50 lb weight at work Lumbar strain: Toradol [place] Robaxin, CT LS spine negative for any fracture, consult for spine surgeon Vivek Carter requesting patient to be discharged home after orthopedic consult MRI LS spine showed: 1. Degenerative disc disease and facet disease with associated spinal canal, subarticular, and neural foraminal stenoses as detailed above. 2. Straightening of the normal lumbar lordosis with minimal retrolisthesis of L5 on S1. 3. Annular fissures at L4-L5 and L5-S1. 4. There is a degree of congenital spinal canal narrowing contributing to the spinal canal stenose Date of Service: Feb 23, 2025 Billing Provider: NGUYEN HERNANDEZ MD Common Visit Codes: [id number] DISCH DAY >30min NGUYEN HERNANDEZ MD Feb 23, 2025 10:02
[2025-02-23] MEDS ORDERED: CYCLOBENZAPRINE HCL 10 MG TAB PO SCH (14:00)
== END 2025-02-23 11:45 | disposition home or self-care (01) | DRG 563 ==
LOC: ER 18:34 → EEVIPCON 18:34 → OVERFLOW 23:13 → EAST 23:52
PROVIDERS: ADMIT Family Medicine; ATTEND Family Medicine
DX: S39.012A Strain of muscle, fascia and tendon of lower back, initial encounter (principal); M62.830 Muscle spasm of back; M25.78 Osteophyte, vertebrae; M47.819 Spondylosis without myelopathy or radiculopathy, site unspecified; M51.A0 Intervertebral annulus fibrosus defect, lumbar region, unspecified size; Y93.89 Activity, other specified; Y92.89 Other specified places as the place of occurrence of the external cause; Y99.8 Other external cause status; X50.0XXA Overexertion from strenuous movement or load, initial encounter
CPT/HCPCS: 36415; 72131; 72148; 80053; 81001; 85025; 96374; 96375; G0378; J1100; J1885; J3490